=== PATIENT | female | born 1990 | race Caucasian/White ===

== ENCOUNTER 2025-04-12 15:47 | Emergency (ER) | payer OTHER ==
[~2025-04-12] VITALS: Ht 167.6 cm; Wt 61.2 kg
[2025-04-12] MEDS ORDERED: IOHEXOL-300 100 ML VIAL IV ONE (17:28)
[2025-04-12] MEDS ORDERED: CT SWABBABLE VALVE TRANS SET 1 EA INFUS.SET MC ONE (17:28)
[2025-04-12] MEDS ORDERED: IV NS 0.9% 250 ML IV ONE (17:28)
[2025-04-12] MEDS ORDERED: dexaMETHasone SOD PHOSPHATE 4 MG/ML VIAL IM ONE (17:30)
[2025-04-12] MEDS ORDERED: KETOROLAC TROMETHAMINE 15 MG/ML VIAL IM ONE (17:30)
[2025-04-12] MEDS ORDERED: dexaMETHasone SOD PHOSPHATE 4 MG/ML VIAL ONE (17:46)
[2025-04-12] MEDS ORDERED: KETOROLAC TROMETHAMINE 15 MG/ML VIAL ONE (17:46)
[2025-04-12] MEDS ORDERED: ACETAMINOPHEN ES 500 MG TABLET ONE (17:46)
[2025-04-12] MEDS: ACETAMINOPHEN ES 500 MG TABLET PO ONE (17:54)
[2025-04-12] MEDS: dexaMETHasone SOD PHOSPHATE 4 MG/ML VIAL IV ONE (17:54)
[2025-04-12] MEDS: KETOROLAC TROMETHAMINE 15 MG/ML VIAL IV ONE (17:55)
[2025-04-12] MEDS ORDERED: DICL1KIT20 TP (19:35)
[2025-04-12] MEDS ORDERED: IBUP-1490 PO (19:35)
[2025-04-12] MEDS ORDERED: METH500T6 PO (19:35)
[2025-04-12 19:49] VITALS: BP 118/70; TEMP 98.1; O2SAT 99
== END 2025-04-12 19:49 | disposition home or self-care (01) ==
LOC: ER 15:56
DX: M54.9 Dorsalgia, unspecified (principal); G89.29 Other chronic pain; M51.372 Other intervertebral disc degeneration, lumbosacral region with discogenic back pain and lower extremity pain; Z79.52 Long term (current) use of systemic steroids; V43.52XA Car driver injured in collision with other type car in traffic accident, initial encounter; Y93.89 Activity, other specified; Y92.415 Exit ramp or entrance ramp of street or highway as the place of occurrence of the external cause; Y99.8 Other external cause status
CPT/HCPCS: 99285; 74177; 96374; 96375; 84703; J1885; J1100; J7050; Q9967